=== PATIENT | male | born 1995 | race Caucasian/White ===

== ENCOUNTER 2019-08-07 09:00 | Emergency (ER) | payer OTHER ==
[~2019-08-07] VITALS: Ht 165.1 cm; Wt 88.0 kg
[2019-08-07] MEDS ORDERED: IBUP-1022 PO (09:10)
--- NOTE | 2019-08-07 10:28 | REP ---
Mandible series four views: There is a nondisplaced fracture at the angle of the mandible on the left. No other mandibular fractures are identified. Electronically Signed by Ant Toth MD 08/07/2019 10:19 A
[2019-08-07 13:35] VITALS: BP 141/84
== END 2019-08-07 13:38 | disposition short-term general hospital (02) ==
LOC: M ED 09:00
DX: S02.602A Fracture of unspecified part of body of left mandible, initial encounter for closed fracture (principal); W01.10XA Fall on same level from slipping, tripping and stumbling with subsequent striking against unspecified object, initial encounter; Y92.099 Unspecified place in other non-institutional residence as the place of occurrence of the external cause; Y93.9 Activity, unspecified; Y99.9 Unspecified external cause status

== ENCOUNTER → 2021-05-07 | Outpatient (CLI) | payer SELFPAY ==
[~2021-05-07] MED LIST: IBUP-1022 PO
== END ==
LOC: M LABSMTC 09:26
PROVIDERS: ATTEND Pediatrics
DX: Z20.828 Contact with and (suspected) exposure to other viral communicable diseases (principal)